=== PATIENT | female | born 1995 | race Caucasian/White ===

== ENCOUNTER 2017-08-10 21:36 | Emergency (ER) | payer OTHER ==
[~2017-08-10] VITALS: Ht 162.6 cm; Wt 56.7 kg
[2017-08-10 21:49] VITALS: Ht 162.6 cm; Wt 56.7 kg
[2017-08-11 00:01] VITALS: BP 112/86
== END 2017-08-11 00:01 | disposition home or self-care (01) ==
LOC: ED 21:36
DX: F45.8 Other somatoform disorders (principal)

== ENCOUNTER 2017-08-24 20:09 | Emergency (ER) | payer OTHER ==
[~2017-08-24] VITALS: Ht 162.6 cm; Wt 58.5 kg
[2017-08-24 20:19] VITALS: Ht 162.6 cm; Wt 58.5 kg
[2017-08-24 21:21] LABS: BASOPHIL % 0.4 % (0-2); PLATELET COUNT 267 x10^3mcL (130-400); RED CELL DISTRIBUTION WIDTH 13.5 % (11.5-14.5)
[2017-08-24 21:22] LABS: CALCIUM 8.6 mg/dL (8.5-10.1); CHLORIDE SERUM 105 mmol/L (98-107); CREATININE SERUM 0.6 mg/dL (0.6-1.0); GFR1 > 60 mL/min; GLUCOSE SERUM 87 mg/dL (74-106); POTASSIUM SERUM 3.1 mmol/L (3.5-5.1); SODIUM SERUM 141 mmol/L (136-145)
[2017-08-24 23:25] VITALS: BP 118/84
== END 2017-08-24 23:25 | disposition home or self-care (01) ==
LOC: ED 20:09
PROVIDERS: Emergency Medicine
DX: N93.8 Other specified abnormal uterine and vaginal bleeding (principal); E87.6 Hypokalemia; Z88.8 Allergy status to other drugs, medicaments and biological substances
CPT/HCPCS: 36415

== ENCOUNTER 2017-12-05 00:50 | Emergency (ER) | payer OTHER ==
[~2017-12-05] VITALS: Ht 162.6 cm; Wt 63.7 kg
[2017-12-05 01:11] VITALS: Ht 162.6 cm; Wt 63.7 kg
[2017-12-05 03:20] LABS: microscopic required? NO
[2017-12-05 03:35] LABS: BASOPHIL % 0.3 % (0-2); PLATELET COUNT 223 x10^3mcL (130-400); RED CELL DISTRIBUTION WIDTH 13.6 % (11.5-14.5)
[2017-12-05 03:41] LABS: UA SPECIFIC GRAVITY 1.015 (1.005-1.035); urine erythrocyte NEGATIVE (NEGATIVE)
[2017-12-05 03:44] LABS: CALCIUM 8.6 mg/dL (8.5-10.1); CARBON DIOXIDE 29.7 mmol/L (21-32); CHLORIDE SERUM 106 mmol/L (98-107); CREATININE SERUM 0.6 mg/dL (0.6-1.0); GFR1 > 60 mL/min; GLUCOSE SERUM 77 mg/dL (74-106); POTASSIUM SERUM 3.4 mmol/L (3.5-5.1); SODIUM SERUM 144 mmol/L (136-145)
[2017-12-05 03:49] LABS: ALBUMIN 3.5 g/dL (3.4-5.0); ALKALINE PHOSPHATASE 51 U/L (46-116); ALT/SGPT 27 U/L (14-59); AST/SGOT 24 U/L (15-37); LIPASE 165 IU/L (73-393); TOTAL PROTEIN, SERUM 6.3 g/dL (6.4-8.2)
[2017-12-05 04:15] VITALS: BP 121/74
== END 2017-12-05 04:15 | disposition home or self-care (01) ==
LOC: ED 00:50
PROVIDERS: Emergency Medicine
DX: K59.00 Constipation, unspecified (principal); R11.10 Vomiting, unspecified; Z88.8 Allergy status to other drugs, medicaments and biological substances; Z90.49 Acquired absence of other specified parts of digestive tract; Z90.3 Acquired absence of stomach [part of]
CPT/HCPCS: 36415

== ENCOUNTER 2017-12-21 19:37 | Emergency (ER) | payer OTHER ==
[~2017-12-21] VITALS: Ht 162.6 cm; Wt 60.3 kg
[2017-12-21 21:41] VITALS: BP 124/79
== END 2017-12-21 21:41 | disposition home or self-care (01) ==
LOC: ED 19:37
DX: S43.52XA Sprain of left acromioclavicular joint, initial encounter (principal); Z90.89 Acquired absence of other organs; Z88.8 Allergy status to other drugs, medicaments and biological substances; X58.XXXA Exposure to other specified factors, initial encounter; Y93.89 Activity, other specified; Y92.89 Other specified places as the place of occurrence of the external cause; Y99.8 Other external cause status

== ENCOUNTER 2018-03-06 20:44 | Emergency (ER) | payer OTHER ==
[~2018-03-06] VITALS: Ht 162.6 cm; Wt 67.1 kg
[2018-03-07 00:17] VITALS: BP 119/79
== END 2018-03-07 00:17 | disposition home or self-care (01) ==
LOC: ED 20:44
DX: M25.561 Pain in right knee (principal); Z88.8 Allergy status to other drugs, medicaments and biological substances; Z90.49 Acquired absence of other specified parts of digestive tract; Z90.3 Acquired absence of stomach [part of]